=== PATIENT | female | born 1960 | race Caucasian/White ===

== ENCOUNTER 2019-08-05 19:51 | Emergency (ER) | payer OTHER ==
[~2019-08-05] VITALS: Ht 162.6 cm; Wt 98.4 kg
[2019-08-05] MEDS ORDERED: ASPIRIN 81 MG TABLET CHEW ONE (20:16)
[2019-08-05] MEDS ORDERED: ASPIRIN 81 MG TABLET CHEW PO ONE (20:30)
[2019-08-05] MEDS ORDERED: SODIUM CHLORIDE FLUSH 10ML SYR IVF ONE (20:30)
[2019-08-05] MEDS ORDERED: PLEASE ENTER ALLERGIES MC SCH (21:00)
[2019-08-05 21:55] LABS: BASOPHILS # (AUTO) 0.05 x10^3/uL (0-0.1); BASOPHILS % (AUTO) 1 % (0-1); EOSINOPHILS # (AUTO) 0.21 x10^3/uL (0-0.4); EOSINOPHILS % (AUTO) 3 % (1-7); LYMPHOCYTES # (AUTO) 3.34 x10^3/uL (1-3.4); LYMPHOCYTES % (AUTO) 44 % (22-44); MD NO; MEAN CORPUSCULAR HGB CONC 33.7 g/dL (32.4-35.8); MEAN CORPUSCULAR VOLUME 88.9 fL (80-100); MEAN PLATELET VOLUME 7.5 fL (7.4-10.4); MONOCYTES # (AUTO) 0.77 x10^3/uL (0.2-0.8); MONOCYTES % (AUTO) 10 % (2-9); NEUTROPHILS # (AUTO) 3.27 x10^3/uL (1.8-6.8); NEUTROPHILS % (AUTO) 43 % (42-75); PLATELET COUNT 331 x10^3/uL (130-400); RED BLOOD COUNT 3.82 x10^6/uL (3.82-5.3); RED CELL DISTRIBUTION WIDTH 13.5 % (9.6-15.2)
[2019-08-05 22:07] LABS: ALANINE AMINOTRANSFERASE 31 U/L (12-78); ALBUMIN 3.9 g/dL (3.4-5.0); ANION GAP 7 mmol/L (5-15); CALCIUM 8.7 mg/dL (8.5-10.1); CHLORIDE 104 mmol/L (98-107); CREATININE 0.86 mg/dL (0.55-1.02)
[2019-08-05 22:12] LABS: ALKALINE PHOSPHATASE 114 U/L (45-117); BILIRUBIN,TOTAL 0.6 mg/dL (0.2-1.0); TOTAL PROTEIN 7.4 g/dL (6.4-8.2); TROPONIN I < 0.015 ng/mL (0.000-0.045)
--- NOTE | 2019-08-05 23:32 | NUR ---
pt to room from lobby
[2019-08-05 23:42] VITALS: BP 159/82
--- NOTE | 2019-08-05 23:44 | NUR ---
Pt here for c/o pain under ribcage x1 day, states pain is worse on left side when breathing and moving. Placed vitals signs monitors, pt's sister at bedside.
[2019-08-06] MEDS ORDERED: SERT100T PO
[2019-08-06] MEDS ORDERED: OMEP20TA62 PO
[2019-08-06] MEDS ORDERED: TRAM50TA2 PO
[2019-08-06] MEDS ORDERED: ALPR1TAB2 PO
[2019-08-06] MEDS ORDERED: NORT25CA78 PO
[2019-08-06] MEDS ORDERED: HYDR200T72 PO
== END 2019-08-06 01:28 | disposition home or self-care (01) ==
LOC: ED 08-06 01:00
DX: M54.6 Pain in thoracic spine (principal); R10.9 Unspecified abdominal pain; R07.9 Chest pain, unspecified
CPT/HCPCS: 36415; 71046; 80053; 83690; 83880; 84484; 85025; 93005; 99283; 99284